=== PATIENT | male | born 1990 | race American Indian/Alaskan Native ===

== ENCOUNTER 2018-06-01 09:53 | Emergency (ER) | payer SELFPAY ==
--- NOTE | 2018-06-01 12:03 | Emergency Department Report ---
ED General Adult HPI - General Chief complaint: Allergic Reaction Stated complaint: ALLERGIC REACTION TO BEESTING Time Seen by Provider: 06/01/18 11:37 Source: family Mode of arrival: Ambulatory Limitations: No Limitations - History of Present Illness Initial comments: Patient presents to the emergency department after being stung by a bee yesterday. Patient complains of swelling to the left lower aspect of his eye. Patient states that he took Benadryl and Motrin for yesterday with some mild improvement and comes to the ED for further evaluation. Patient denies any problems with his vision or any eye pain. -: Sudden Location: face Radiation: non-radiation Severity scale (0 -10): 1 Consistency: constant Improves with: none Worsens with: none Associated Symptoms: denies other symptoms Treatments Prior to Arrival: none - Related Data Previous Rx's Medication Instructions Recorded Last Taken Type Ibuprofen [Motrin] 800 mg PO Q8HR PRN #30 tablet 06/01/18 Unknown Rx predniSONE [Deltasone] 50 mg PO QDAY #5 tab 06/01/18 Unknown Rx Allergies Allergy/AdvReac Type Severity Reaction Status Date / Time No Known Allergies Allergy Unverified 06/01/18 10:19 ED Review of Systems ROS: Stated complaint: ALLERGIC REACTION TO BEESTING Other details as noted in HPI Comment: All other systems reviewed and negative Constitutional: denies: chills, fever Eyes: denies: eye pain, eye discharge, vision change ENT: denies: ear pain, throat pain Respiratory: denies: cough, shortness of breath, wheezing Cardiovascular: denies: chest pain, palpitations Endocrine: no symptoms reported Gastrointestinal: denies: abdominal pain, nausea, diarrhea Genitourinary: denies: urgency, dysuria Musculoskeletal: denies: back pain, joint swelling, arthralgia Skin: denies: rash, lesions Neurological: denies: headache, weakness, paresthesias Psychiatric: denies: anxiety, depression Hematological/Lymphatic: denies: easy bleeding, easy bruising ED Past Medical Hx - Past Medical History Previous Medical History?: No - Surgical History Past Surgical History?: No - Social History Smoking Status: Never Smoker Substance Use Type: None - Medications Home Medications: Home Medications Medication Instructions Recorded Confirmed Last Taken Type Ibuprofen [Motrin] 800 mg PO Q8HR PRN #30 tablet 06/01/18 Unknown Rx predniSONE [Deltasone] 50 mg PO QDAY #5 tab 06/01/18 Unknown Rx ED Physical Exam - General Limitations: No Limitations General appearance: alert, in no apparent distress - Head Head exam: Present: atraumatic, normocephalic - Eye Eye exam: Present: normal appearance, PERRL, EOMI, other (infraorbital soft tissue swelling left side) - ENT ENT exam: Present: mucous membranes moist - Neck Neck exam: Present: normal inspection - Respiratory Respiratory exam: Present: normal lung sounds bilaterally. Absent: respiratory distress - Cardiovascular Cardiovascular Exam: Present: regular rate, normal rhythm. Absent: systolic murmur, diastolic murmur, rubs, gallop - GI/Abdominal GI/Abdominal exam: Present: soft, normal bowel sounds - Rectal Rectal exam: Present: deferred - Extremities Exam Extremities exam: Present: normal inspection - Back Exam Back exam: Present: normal inspection - Neurological Exam Neurological exam: Present: alert, oriented X3, CN II-XII intact. Absent: motor sensory deficit - Psychiatric Psychiatric exam: Present: normal affect, normal mood - Skin Skin exam: Present: warm, dry, intact, normal color. Absent: rash ED Course Vital Signs 06/01/18 10:19 Temperature 98.6 F Pulse Rate 50 L Respiratory 17 Rate Blood Pressure 109/62 O2 Sat by Pulse 99 Oximetry ED Medical Decision Making - Medical Decision Making Discussed plan of care with patient Critical care attestation.: If time is entered above; I have spent that time in minutes in the direct care of this critically ill patient, excluding procedure time. ED Disposition Clinical Impression: Insect bite, Facial swelling Disposition: TO HOME OR SELFCARE Is pt being admited?: No Does the pt Need Aspirin: No Condition: Stable Instructions: Insect Bite or Sting (ED) Additional Instructions: return if worse Prescriptions: Ibuprofen [Motrin] 800 mg PO Q8HR PRN #30 tablet PRN Reason: pain predniSONE [Deltasone] 50 mg PO QDAY #5 tab Referrals: PRIMARY CARE, [Primary Care Provider] - 3-5 Days [facility] [Provider Group] - 3-5 Days Time of Disposition: 12:01
[2018-06-01] MEDS ORDERED: SOLU-Medrol IM ONE (12:22)
[2018-06-01] MEDS ORDERED: SOLU-Medrol ONE (12:26)
[2018-06-01 12:29] VITALS: BP 110/60
== END 2018-06-01 12:27 | disposition home or self-care (01) ==
LOC: ED 09:53
DX: S00.262A Insect bite (nonvenomous) of left eyelid and periocular area, initial encounter (principal); W57.XXXA Bitten or stung by nonvenomous insect and other nonvenomous arthropods, initial encounter; Y93.89 Activity, other specified; Y99.8 Other external cause status; Y92.89 Other specified places as the place of occurrence of the external cause
CPT/HCPCS: 96372; 99282; J2930

== ENCOUNTER 2019-04-10 00:09 | Emergency (ER) | payer OTHER ==
[2019-04-10 00:14] VITALS: BP 133/73
[2019-04-10] MEDS ORDERED: IBUPROFEN PO ONE (01:07)
[2019-04-10] MEDS ORDERED: TYLENOL PO ONE (01:07)
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
--- NOTE | 2019-04-10 01:17 | XRay Report ---
Lumbar spine-3 views INDICATION: back pain. Acute generalized low back pain COMPARISON: None. IMPRESSION: Normal alignment. No significant discogenic DJD or facet arthropathy. No acute osseous or soft tissue abnormality. Signer Name: Arpan Eubanks MD Signed: 04/10/2019 1:12 AM Workstation Name: [id number]
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
== END 2019-04-10 02:57 | disposition home or self-care (01) ==
LOC: ED 00:09
DX: M62.830 Muscle spasm of back (principal); M54.2 Cervicalgia; Z79.1 Long term (current) use of non-steroidal anti-inflammatories (NSAID); Z79.899 Other long term (current) drug therapy; V89.2XXA Person injured in unspecified motor-vehicle accident, traffic, initial encounter; Y93.89 Activity, other specified; Y92.488 Other paved roadways as the place of occurrence of the external cause; Y99.8 Other external cause status
CPT/HCPCS: 72040; 72100; 99283

== ENCOUNTER 2019-11-06 00:58 | Emergency (ER) | payer OTHER ==
[2019-11-06 01:31] VITALS: BP 136/78
== END 2019-11-06 06:50 | disposition left against medical advice (07) ==
LOC: ED 00:58
DX: Z04.1 Encounter for examination and observation following transport accident (principal); Z53.21 Procedure and treatment not carried out due to patient leaving prior to being seen by health care provider

== ENCOUNTER 2019-11-06 18:16 | Emergency (ER) | payer OTHER ==
[2019-11-06 18:24] VITALS: BP 148/74
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
== END 2019-11-06 19:30 | disposition left against medical advice (07) ==
LOC: ED 18:16
DX: M54.5 Low back pain (principal)
CPT/HCPCS: 99281